=== PATIENT | male | born 1955 | race Caucasian/White ===

== ENCOUNTER → 2017-03-09 | Outpatient (CLI) | payer OTHER ==
--- NOTE | 2017-03-09 11:07 | DIAGNOSTIC IMAGING REPORT ---
L KNEE 1 OR 2 VIEWS ROUTINE CLINICAL HISTORY: Left knee pain status post trauma COMPARISON: None. DISCUSSION: There is subtle chondrocalcinosis. There are mild to moderate osteoarthritic changes present. No fractures or dislocations are visualized. There are dorsal patellar spurs. IMPRESSION: No fractures or dislocations identified. Electronically signed by: Herbie Gerardo M.D. 03/09/2017 11:06 AM Dictated Date/Time: 03/09/2017 11:04 AM
--- NOTE | 2017-03-09 11:09 | DIAGNOSTIC IMAGING REPORT ---
L SHOULDER MIN 2 VIEWS ROUTINE CLINICAL HISTORY: Left shoulder pain status post trauma COMPARISON: None. DISCUSSION: No fractures or dislocations are visualized. There Is No Evidence for Soft Tissue Swelling. IMPRESSION: No fractures or dislocations identified. Electronically signed by: Herbie Gerardo M.D. 03/09/2017 11:07 AM Dictated Date/Time: 03/09/2017 11:06 AM
== END | disposition home or self-care (01) ==
LOC: C.RAD1850 10:48
PROVIDERS: ATTEND Nurse Practitioner Family
DX: M25.562 Pain in left knee (principal); M25.512 Pain in left shoulder; W17.89XA Other fall from one level to another, initial encounter